=== PATIENT | female | born 1950 | race Caucasian/White ===

== ENCOUNTER → 2017-05-17 13:45 | Outpatient (CLI) | payer MEDICAID | END | disposition home or self-care (01) | LOC: D.CT 13:45 | DX: R55 Syncope and collapse (principal) ==

== ENCOUNTER → 2017-08-03 06:17 | Outpatient (CLI) | payer MEDICARE ==
--- NOTE | ~2017-08-03 | HEMODYNAMI ---
PATIENT:CHET TATE MEDICAL RECORD: [id number] : 54 LOCATION:[facility] ADMISSION DATE: 08/03/17 Generatedon:08/03/20179:15 Patient name: CHET TATE Patient #: [id number] SSN: : 1950 Date of study: 08/03/2017 Page: Of Hemodynamic Procedure Report Patient Data Patient Demographics Procedure consent was obtained First Name: CHET Gender: Female Last Name: BEBETO : 1950 [facility] Initial: ANDERSON Age: 67 year(s) Patient #: [id number] Race: Unknown Additional ID: [id number] Contact details [address]: [address] [place] [address] State: [place] City: [place] Zip code: [address] Admission Admission Data Admission Date: 08/03/2017 Admission Time: 6:17 Procedure Procedure Types Cath Procedure Diagnostic Procedure LHC LHC w/Coronaries Miscellaneous Procedures Moderate Sedation up to 15 minutes Procedure Description Procedure Date Procedure Date: 08/03/2017 Procedure Start Time: 8:52 Procedure End Time: 9:15 Procedure Staff Name Function Jin Almaguer MD Performing Physician Daria Coles RT Scrub Grady Issa RT Monitor Denys Marquez RN Nurse Procedure Data Cath Procedure Fluoroscopy Diagnostic fluoroscopy Total fluoroscopy Time: 1.3 time: 1.3 min min Diagnostic fluoroscopy Total fluoroscopy dose: 101 dose: 101 mGy mGy Contrast Material Contrast Material Type Amount (ml) Isovue 300 32 Entry Location Entry Primary Successful Side Size Upsize Upsize Entry Closure Boo ccessful Closure Location (Fr) 1 (Fr) 2 (Fr) Remarks Device Remarks Femoral Right 5 Fr Manual artery Compression Estimated blood loss: 10 ml Diagnostic catheters Device Type Used For End Catheter Placement Cordis 5Fr JL 4.0 Procedure Catheter (MP) Cordis 5Fr 3DRC Catheter Procedure (MP) Cordis 5Fr Pigtail Procedure Catheter (MP) Procedure Complications No complications Procedure Medications Medication Administration Route Dosage Oxygen NC 2 l/min Lidocaine 2% added to field 20 Heparin Flush Bag added to field 2 bags (1000units/500ml NS) 0.9% NaCl I.V. 100 ml/hr Versed I.V. 1 mg Fentanyl I.V. 50 mcg Hemodynamics Rest Heart Rate: 53 (bpm) Pressure Samples Time Site Value (mmHg) Purpose Heart Use Rate(bpm) 9:01 LV 106/-2,12 EDP 66 9:01 AO 93/55(72) Pullback 68 9:01 LV 95/7,8 Pullback 68 Gradients Valve Time Site 1 Site 2 Mean SEP/DFP Peak To Heart Use (mmHg) (sec/min) Peak Rate (mmHg) (bpm) Aortic 9:01 LV AO 3 16 2 68 95/7,8 93/55(72) Calculations Valve P-P Mean Valve Index Valve Source Name Gradient Area Flow (cm2) Aortic 2 3 2 3 Snapshots Pre Cath Intra NCS Post Cath Vital Signs Time Heart Resp SPO2 etCO2 NIBP Rhythm Pain Sedation Rate (ipm) (%) (mmHg) (mmHg) Status Level (bpm) 8:38:39 62 14 100 0 113/63(87) NSR 0 (11) 10(A) , No pain 8:43:09 71 16 100 0 119/75(92) NSR 0 (11) 10(A) , No pain 8:47:42 68 15 100 0 107/64(88) NSR 0 (11) 10(A) , No pain 8:52:12 68 16 99 0 95/61(73) NSR 0 (11) 10(A) , No pain 8:56:40 65 14 99 0 98/62(75) NSR 0 (11) 10(A) , No pain 9:01:09 66 15 98 0 97/60(75) NSR 0 (11) 10(A) , No pain 9:05:37 66 18 100 0 99/64(79) NSR 0 (11) 10(A) , No pain 9:10:05 62 14 100 0 98/60(79) NSR 0 (11) 10(A) , No pain 9:14:34 61 20 0 102/65(84) NSR 0 (11) 10(A) , No pain Medications Time Medication Route Dose Verified Delivered Reason Notes Effec tiveness by by 8:37:48 Oxygen NC 2 Jin Buffie used for l/min Tripp Marquez RN procedure MD 8:37:56 Lidocaine 2% added 20ml Jin Jin for local to vial Tripp Almaguer MD anesthetic field 8:38:03 Heparin Flush added 2 Jin Jin used for Bag to bags Tripp Almaguer MD procedure (1000units/500ml field NS) 8:38:13 0.9% NaCl I.V. 100 Jin Buffie Per ml/hr Tripp Marquez RN physician MD 8:48:24 Versed I.V. 1 mg Jin Buffie for Tripp Marquez RN sedation 8:48:31 Fentanyl I.V. 50 Jin Buffie for mcg Tripp Marquez RN sedation Procedure Log Time Note 8:00:20 Denys Marquez RN sent for patient. Start room use. 8:32:40 Patient received from Pre/Post Procedure Room to CCL 1 Alert and oriented. Tansferred to table in Supine position. 8:37:30 Time tracking: Regular hours 8:37:34 Plan of Care:Hemodynamics will remain stable., Cardiac rhythm will remain stable., Comfort level will be maintained., Respiratory function will remain adequate., Patient/ family verbilizes understanding of procedure., Procedure tolerated without complication., Recovers from procedure without complications.. 8:37:41 Warm blankets applied, and kvng hugger turned on for patient comfort. 8:37:41 Correct patient and procedure confirmed by team. 8:37:42 Signed procedure consent form obtained from patient. 8:37:43 ECG and BP/O2 sat monitors applied to patient. 8:37:48 Oxygen 2 l/min NC was administered by Denys Marquez RN; used for procedure; 8:37:52 Vital chart was started 8:37:53 Baseline sample Acquired. 8:37:56 Lidocaine 2% 20ml vial added to field was administered by Jin Almaguer MD; for local anesthetic; 8:37:56 Rhythm: sinus rhythm 8:37:58 Full Disclosure recording started 8:38:03 Heparin Flush Bag (1000units/500ml NS) 2 bags added to field was administered by Jin Almaguer MD; used for procedure; 8:38:13 0.9% NaCl 100 ml/hr I.V. was administered by Denys Marquez RN; Per physician; 8:38:27 H&P Date Dictated: 08/03/2017 New H&P dictated by physician.. 8:38:28 Pre-procedure instructions explained to patient. 8:38:28 Pre-op teaching completed and patient verbalized understanding. 8:38:35 Family in patients room. 8:38:36 Patient NPO since Midnight. 8:38:38 Is the patient allergic to Iodine/contrast media? No. 8:39:08 Is patient on blood thinner?Yes 8:39:11 ACC The patient was administered the following blood thiners within the last 24 hours: ACCPlavix 8:39:14 Patient diabetic? No. 8:39:17 Previous problem with sedation/anesthesia? No ? 8:39:19 Snore? Yes 8:39:21 Sleep apnea? No 8:39:22 Deviated septum? No 8:39:23 Opens mouth fully? Yes 8:39:24 Sticks out tongue? Yes 8:39:35 Airway obstruction? No ? 8:39:58 Dentures? Yes IN 8:40:01 Pre procedure: right dorsailis pedis pulse 1+ Palpable, but thready & weak; easily obliterated 8:40:03 Modified Maxime's test Ulnar > 7 seconds. 8:40:13 FAILED MAXIME'S 8:40:15 Patient pain scale 0/10 ?. 8:40:20 IV patent on arrival in left forearm with 0.9% NaCl at O. 8:40:23 Lab results completed and on chart. 8:40:34 Right groin area was prepped with chlora-prep and draped in sterile fashion 8:40:38 Alarms reviewed by R. N. 8:40:38 Sharps counted by scrub and verified by R.N. 8:40:39 Physician paged 8:42:32 Use device set Femoral Dx 8:42:33 Tegaderm 4 x 4 opened to sterile field. 8:42:34 Acist Hand Control opened to sterile field. 8:42:35 Acist Manifold opened to sterile field. 8:42:36 Acist Syringe opened to sterile field. 8:42:37 Bag Decanter opened to sterile field. 8:42:37 Medline Cath Pack opened to sterile field. 8:42:37 Terumo 5Fr Beaufort Sheath opened to sterile field. 8:42:38 St Amari 260cm J .035 wire opened to sterile field. 8:42:39 Diagnostic Infinity 5Fr Multipack catheter opened to sterile field. 8:43:00 Cook 4Fr Micropuncture ([id number]) opened to sterile field. 8:44:30 Physician arrived 8:44:46 --------ALL STOP TIME OUT------ 8:44:47 Final Timeout: patient, procedure, and site verified with staff and physician. All members of the team are in agreement. 8:44:50 Right groin site verified by team. 8:44:52 Physical assessment completed. ASA score P 2 - A patient with mild systemic disease as per Jin Almaguer MD. 8:44:56 Sedation plan: IV Moderate Sedation Versed, Fentanyl 8:48:24 Versed 1 mg I.V. was administered by Denys Marquez RN; for sedation; 8:48:31 Fentanyl 50 mcg I.V. was administered by Denys Marquez RN; for sedation; 8:52:38 Procedure started. 8:52:49 Local anesthetic to right femoral artery with Lidocaine 2% by Jin Almaguer MD.INITIAL ACCESS ONLY 8:54:43 Access obtained with 4Fr micropunture. 8:54:54 A 5 Fr sheath was inserted into the Right Femoral artery 8:55:29 A Cordis 5Fr JL 4.0 Catheter (MP) was advanced over the wire and used for Procedure. 8:56:18 LCA angiography performed. 8:57:17 Catheter exchanged over wire. 8:57:34 Zero performed for pressure channel P1 8:57:37 Zero performed for pressure channel P1 8:58:30 A Cordis 5Fr 3DRC Catheter (MP) was advanced over the wire and used for Procedure. 8:59:05 RCA angiography performed. 8:59:26 Catheter exchanged over wire. 9:00:08 A Cordis 5Fr Pigtail Catheter (MP) was advanced over the wire and used for Procedure. 9:01:23 LV angiography performed. 9:01:24 LV gram done using DALTON 9:02:14 EF : 50 % 9:02:41 LV hemodynamics recorded. 9:02:48 Injector settings: Ml/sec: 12, Volume: 8, 9:02:51 Catheter removed. 9:04:09 Procedure ended.(Physican Out) 9:04:32 Sheath removed intact; hemostasis achieved with Manual Compression to the Right Femoral artery. 9:04:33 Physician opted for manual compression due to the artery being very superficial. 9:04:49 Fluoroscopy time 01.30 minutes. 9:04:53 Fluoroscopy dose: 101 mGy 9:04:53 Flurop Dose total: 101 9:04:58 Contrast amount:Isovue 300 32ml. 9:05:00 Sharps counted by scrub and verified by R.N. 9:05:07 Post Procedure Pulses reassessed and unchanged 9:05:11 Post-procedure physical assessment completed. ASA score P 2 - A patient with mild systemic disease as per Jin Almaguer MD. 9:05:15 Post procedure rhythm: unchanged. 9:05:18 Estimated blood loss: 10 ml 9:05:20 Post procedure instruction explained to patient.Patient verbalizes understanding. 9:05:21 Patient needs reinforcement of post procedure teaching. 9:05:28 Procedure type changed to Cath procedure, Diagnostic procedure, LHC, LHC w/Coronaries, Miscellaneous Procedures, Moderate Sedation up to 15 minutes 9:06:55 Procedure and supply charges have been captured, reviewed, submitted and are correct. 9:06:58 Procedure Complication : No complications 9:14:55 Vital chart was stopped 9:14:56 See physician's report for complete and final results. 9:14:57 Report given to Pre/Post Procedure Room. 9:14:59 Patient transfered to Pre/Post Procedure Room with Stretcher. 9:15:02 Procedure ended. 9:15:02 Full Disclosure recording stopped 9:15:05 End room use (Document Last) Device Usage Item Name Manufacture Quantity Catalog Hospital Part Current Minimal Lot# / Number Charge Number Stock Stock Serial# Code Tegaderm 4 x 3M 1 [id number] 128776 310857 5 4 Acist Hand Acist 1 06003 196324 833102 545118 5 Control [employer] Inc Acist Acist 1 85791 432008 382425 490555 5 Manifold Medical Systems Inc Acist Syringe Acist 1 91369 708663 091122 320568 20 Medical Systems Inc Bag Decanter Microtek 1 2002S [id number] 12077 110263 5 Medical Inc. Medline Cath Cardinal 1 [id number] 051672 23703 057172 5 Pack Health Terumo 5Fr Terumo 1 BEL227 103729 968233 080316 [address] Amari 260[address] St Amari 1 [id number] 199207 097858 793717 30 J .035 wire Diagnostic Cardinal 1 [id number] 058044 65153 716735 30 Infinity 5Fr Health Multipack catheter Cook 4Fr Cook [facility] 1 [id number] 094231 041080 318479 5 Micropuncture ([id number]) Cordis 5Fr JL Cardinal 1 [id number] 5 4.0 Catheter Health () Cordis 5Fr Cardinal 1 [id number] 5 3DRC Catheter Health () Cordis 5Fr Cardinal 1 [id number] 5 Pigtail Health Catheter () Signature Audit Rector Stage Time Signature Unsigned Intra-Procedure 08/03/2017 Grady Issa 9:15:17 AM RT(R) Signatures Monitor : Grady Issa RT Signature : Date : Time : [address] [address]
[~2017-08-03 06:17] MED LIST: COREG 3.1253.125 MG PO
[2017-08-03 06:52] VITALS: BP 124/76; BMI 16.5
[2017-08-03 06:56] LABS: BASOPHILS 1.2 % (0-2); EOSINOPHILS 12.5 % (0-7); HEMATOCRIT 44.7 % (36.0-48.0); LYMPHOCYTES 34.4 % (15-50); MCH 32.5 pg (26.0-34.0); MCHC 33.6 g/dL (31.0-37.0); MEAN PLATELET VOLUME 10.1 fL (7.4-10.4); MONOCYTES 4.8 % (2-11); NEUTROPHILS 47.1 % (40-80); PLATELET COUNT 221 10x3/uL (130-400); RBC 4.61 10x6/uL (4.00-5.40); WBC 4.2 10x3/uL (4.8-10.8)
[2017-08-03 07:17] LABS: CALC OSMOLALITY 269 mosm/kg (275-300); CALCIUM 9.1 mg/dL (8.5-10.1); CARBON DIOXIDE 31.8 mmol/L (21.0-32.0); CHLORIDE - SERUM 100 mmol/L (98-107); CREATININE - SERUM 0.4 mg/dL (0.6-1.3); GLUCOSE 88 mg/dL (74-106); POTASSIUM - SERUM 3.9 mmol/L (3.5-5.1); SODIUM 137 mmol/L (136-145); UREA NITROGEN 5 mg/dL (7-18); eGFR NON AFRICAN AMERICAN > 90 mL/min (90-120)
--- NOTE | 2017-08-03 09:32 | NUR ---
RECIEVED TO ROOM VIA STRETCHER WITH DRESSING TO R/GROIN CDI NO BLEEDING NO HEMATOMA NOTED. VSS WITH CHEST PAIN DENIED INSTRUCTED PATIENT TO KEEP HEAD FLAT ON PILLOW WITH RLE STRAIGHT
--- NOTE | 2017-08-03 09:44 | NUR ---
R/GROIN REMAINS CDI NO BLEEDING NO HEMATOMA NOTED. VSS WITH PAIN DENIED FAMILY AT SIDE
--- NOTE | 2017-08-03 10:35 | NUR ---
VSS WITH CHEST PAIN DENIED. R/GROIN CDI NO BLEEDING NO HEMATOMA NOTED. WILL MONITOR
--- NOTE | 2017-08-03 10:54 | NUR ---
PATIENT CONTINUES TO SLEEP WITH NO DISTRESS NOTED FAMILY IS AT BEDSIDE. VSS WITH R/GROIN CDI
--- NOTE | 2017-08-03 11:21 | NUR ---
REPOSITIONED TO SITTING WITH HOB UP 30 DEGREES PIV REMOVED WITH DRESSING APPLIED. R/GROIN REMAINS CDI WITH CHEST PAIN DENIED. PATIENT UP TO GET DRESSED FOR DISCHARGE HOME
--- NOTE | 2017-08-03 12:00 | NUR ---
PATIENT UP AND DRESSED FOR DISCHARGE WITH PAIN DENIED R/GROIN REMAINS STABLE NO DISTRESS NOTED. VERBAL AND WRITTEN DISCHARGE GONE OVER WITH PATIENT LEFT VIA WC TO PARKING FOR TRANSPORT HOME
== END | disposition home or self-care (01) ==
LOC: D.CATH 06:17
PROVIDERS: Internal Medicine Cardiovascular Disease
DX: I25.10 Atherosclerotic heart disease of native coronary artery without angina pectoris (principal); I47.1 Supraventricular tachycardia; I42.8 Other cardiomyopathies; R94.39 Abnormal result of other cardiovascular function study; Z87.891 Personal history of nicotine dependence; Z79.899 Other long term (current) drug therapy; Z01.812 Encounter for preprocedural laboratory examination

== ENCOUNTER → 2018-01-08 07:42 | Outpatient (CLI) | payer MEDICARE ==
[2017-08-03 06:52] VITALS: BMI 16.5
== END ==
LOC: D.MAMMO 11-22 15:45
DX: Z12.31 Encounter for screening mammogram for malignant neoplasm of breast (principal)

== ENCOUNTER → 2018-02-27 12:43 | Outpatient (CLI) | payer MEDICARE ==
[2017-08-03 06:52] VITALS: BMI 16.5
--- NOTE | ~2018-02-27 | EC ---
PATIENT:CHET TATE DATE OF SERVICE: 02/27/18 SEX: F MEDICAL RECORD: [id number] DATE OF : 54 LOCATION:D[facility] AGE OF PATIENT: 67 ADMISSION DATE: 02/27/18 REFERRING PHYSICIAN: INTERPRETING PHYSICIAN: HAMMAD TIRADO MD ECHOCARDIOGRAM REPORT ECHO CHARGES 4 ECHO COMPLETE Date: 02/27 CLINICAL DIAGNOSIS: HX OF DIZZNINESS/ABLASION FOR SVT ECHOCARDIOGRAPHIC MEASUREMENTS (adult normal given) AC root (d.<3.7cm) 2.6 cm LV Septum d (<1.2 cm> 1.3 cm Valve Excursion 1.7 cm LV Septum (systole) 1.4 cm Left Atria (s.<4.0cm> 3.5 cm LVPW d(<1.2cm) 1.2 cm RV (d.<2.3cm) 4.6 cm LVPW (sytole) 1.5 cm LV diastole(<5.6CM) 4.9 cm MV E-F(>70mm/sec) cm LV systole 3.8 cm LVOT Diameter 2.0 cm MV exc.(>10mm) 1.5 cm Est.ejection fraction (50-75%) % DOPPLER: LVIT cm/sec A 70.0 cm/sec E 58.0 cm/sec LA cm/sec RVSP 33 mmHg LVOT 81 cm/sec AOP1/2T m/s Asc. Ao 123 cm/sec RVOT 78 cm/sec RA cm/sec PA 117 cm/sec AV Gradient Peak 6.07 mmHg AV Mean 3.30 mmHg AV Area 1.8 cm MV Gradient Peak 2.64 mmHg MV Mean 1.16 mmHg MV Area cm COMMENTS: Material Spreader: 2 [employer] Supervisor: 4 Dr. Tirado TAPE# PACS Pericardial Effusion N DATE OF SERVICE: PROCEDURE: Transthoracic echocardiogram. FINDINGS: 1. Left ventricle has mild left ventricular hypertrophy. Inflow characteristics consistent with diastolic dysfunction. 2. The left atrium is normal size, normal function. 3. The mitral valve is structurally normal with trace to mild mitral regurgitation. ECHOCARDIOGRAM REPORT [id number] CHET TATE 4. The aortic valve is normal. 5. The tricuspid valve is normal structurally with mild tricuspid regurgitation. The RVSP is 33 mmHg. 6. The right ventricle is moderately dilated. 7. The right atrium is mildly dilated. 8. The pulmonic valve is normal. CONCLUSIONS: The patient has evidence of mild hypertensive heart disease, otherwise normal echocardiogram for age. TRANSINT:[id number] Voice Confirmation ID: [id number] DOCUMENT ID: [id number] HAMMAD TIRADO MD at 0819 CC: [id number] DICTATION DATE: 02/28/18925 EARLY CHILDHOOD COORDINATOR: 02/28/18 1220 DEP CLI 02/27/18 [address] [place] [address]
== END | disposition home or self-care (01) ==
LOC: D.ECHO 09:00 → D.OPS 11:30 → D.ECHO 12:43
DX: R42 Dizziness and giddiness (principal)

== ENCOUNTER 2020-05-15 14:18 | Inpatient (IN) | payer MEDICARE ==
[~2020-05-15] VITALS: Ht 167.6 cm; Wt 47.6 kg
[2020-05-15] MEDS ORDERED: OXYBUTYNIN CHLOR5 MG PO (14:42)
--- NOTE | 2020-05-15 14:52 | NUR ---
REC'D TO ROOM 2207 AT THIS TIME ALERT AND ORIENTED. RESP EVEN AND UNLABORED WITH NO DISTRESS NOTED. CAN EXPRESS NEEDS AND WANTS. NO C/O NOTED OR VOICED. STAND BY ASSISTANCE GIVEN TO BSC. ASSESSMENT COMPLETED. C/L IN REACH AT BEDSIDE.
[2020-05-15] MEDS ORDERED: ALENDRONATE SOD35 MG PO (14:56)
[2020-05-15] MEDS ORDERED: OS-CAL500 MG PO (14:57)
[2020-05-15] MEDS ORDERED: VITAMIN D5000 UNI1 PO (14:58)
[2020-05-15 15:03] VITALS: BP 131/78; BMI 16.9
--- NOTE | 2020-05-15 15:10 | NUR ---
ASSESSMENT COMPLETED PER ADMIT FLOW SHEET. PATIENT IS WITHOUT DISTRESS.PATIENT STATES HER RIGHT HIP HURTS AFTER LOOSING BALANCE AND FALLING ON April.FALL PREVENTION INITIATED WITH DEYSI MAT. FAMILY AT BEDSIDE.CALL LIGHT IN REACH.
[2020-05-15 15:29] LABS: APTT 27.9 SECONDS (22.8-39.4); INR 1.07 (0.85-1.17); PROTIME 13.9 SECONDS (11.6-15.0)
[2020-05-15 15:31] LABS: BASOPHILS 0.8 % (0-2); EOSINOPHILS 2.3 % (0-7); HEMATOCRIT 41.8 % (36.0-48.0); HEMOGLOBIN 13.7 g/dL (12-16); LYMPHOCYTES 30.1 % (15-50); MCH 31.1 pg (26.0-34.0); MCHC 32.8 g/dL (31.0-37.0); MCV 94.8 fL (80.0-100.0); MEAN PLATELET VOLUME 9.2 fL (7.4-10.4); MONOCYTES 10.1 % (2-11); NEUTROPHILS 56.7 % (40-80); PLATELET COUNT 304 10x3/uL (130-400); RBC 4.41 10x6/uL (4.00-5.40); RDW 13.7 % (11.5-14.5)
[2020-05-15 15:35] LABS: ALBUMIN 3.8 g/dL (3.4-5.0); ALKALINE PHOSPHATASE 134 U/L (30-120); ALT (SGPT) 16 U/L (10-68); BILIRUBIN - TOTAL 0.54 mg/dL (0.2-1.3); CALC OSMOLALITY 262 mosm/kg (275-300); CALCIUM 9.2 mg/dL (8.5-10.1); CARBON DIOXIDE 28.9 mmol/L (21.0-32.0); CHLORIDE - SERUM 97 mmol/L (98-107); CREATININE - SERUM 0.4 mg/dL (0.6-1.3); GLUCOSE 101 mg/dL (74-106); POTASSIUM - SERUM 3.5 mmol/L (3.5-5.1); PROTEIN - SERUM 7.1 g/dL (6.4-8.2); SODIUM 133 mmol/L (136-145); UREA NITROGEN 4 mg/dL (7-18); eGFR NON AFRICAN AMERICAN > 90 mL/min (90-120)
--- NOTE | 2020-05-15 17:04 | NUR ---
CALLED AND SPOKE TO DR BOYD IN REGARDS TO CONSULT, RECEIVED MRI RESULTS FROM WALK IN CLINIC, WENT OVER RESULTS WITH DR BOYD AND PT H&P, AFTER REVIEWING RESULTS, DR BOYD ASKED ME TO GO AND SPEAK TO PT IN REGARDS TO POSSIBLE SPINAL TAP DONE WITH DR MOCK, PER PT SHE DOES REMEMBER HAVING A SPINAL TAP AND THAT SHE WILL NEVER HAVE ONE AGAIN. WENT OVER RESULTS SHE RECEIVED FROM DR MOCK AT THE TIME, RELAYED RESULTS TO DR BOYD. PLACED ORDER FOR XRAY OF HIP FOR DR BETHEA. NO OTHER NEEDS AT THIS TIME. CONTINUE WITH PLAN OF CARE
[2020-05-15 20:00] VITALS: BP 139/75
[2020-05-15 22:38] LABS: BILIRUBIN NEGATIVE (NEGATIVE); GLUCOSE NEGATIVE (NEGATIVE); KETONE NEGATIVE (NEGATIVE); NITRITE NEGATIVE (NEGATIVE); UROBILINOGEN NORMAL (NORMAL)
[2020-05-16] VITALS (9 sets, daily range): BP systolic 102–120; BP diastolic 55–78
--- NOTE | 2020-05-16 00:50 | NUR ---
A&O X 4. UP WITH STANDBY Assist TO BSC. CONSENTS SIGNED AND ON CHART. EKG PERFORMED. CHG BATH COMPLETED. NO NEEDS VOICED AT THIS TIME, CTM.
--- NOTE | 2020-05-16 03:44 | NUR ---
I have reviewed this patient and I concur with the Shift Assessment completed by the Licensed Practical Nurse today this shift.
[2020-05-16 06:19] LABS: BASOPHILS 0.5 % (0-2); EOSINOPHILS 4.3 % (0-7); HEMATOCRIT 40.9 % (36.0-48.0); HEMOGLOBIN 13.5 g/dL (12-16); IMMATURE GRANULOCYTES 0.2 % (0-5); LYMPHOCYTES 26.6 % (15-50); MCH 31.3 pg (26.0-34.0); MCV 94.7 fL (80.0-100.0); MONOCYTES 11.3 % (2-11); NEUTROPHILS 57.1 % (40-80); PLATELET COUNT 269 10x3/uL (130-400); RBC 4.32 10x6/uL (4.00-5.40); RDW 13.8 % (11.5-14.5); WBC 4.4 10x3/uL (4.8-10.8)
[2020-05-16 06:40] LABS: ALBUMIN 3.4 g/dL (3.4-5.0); ALKALINE PHOSPHATASE 122 U/L (30-120); BILIRUBIN - TOTAL 0.52 mg/dL (0.2-1.3); CALCIUM 8.5 mg/dL (8.5-10.1); CHLORIDE - SERUM 106 mmol/L (98-107); CREATININE - SERUM 0.4 mg/dL (0.6-1.3); GLUCOSE 78 mg/dL (74-106); PROTEIN - SERUM 6.1 g/dL (6.4-8.2); SODIUM 141 mmol/L (136-145); eGFR NON AFRICAN AMERICAN > 90 mL/min (90-120)
[2020-05-16 06:42] LABS: ALT (SGPT) 22 U/L (10-68); CALC OSMOLALITY 275 mosm/kg (275-300); POTASSIUM - SERUM 4.1 mmol/L (3.5-5.1); UREA NITROGEN 2 mg/dL (7-18)
--- NOTE | 2020-05-16 08:15 | NUR ---
PATIENT PREMEDICATED FOR SURGERY WITH SURGERY STAFF HERE. PATIENT STABLE AT TIME OF DEPARTURE WITH STAFF. IV INFUSING TO LEFT FOREARM AT PRESCRIBED RATE.
--- NOTE | 2020-05-16 09:38 | NUR ---
PT CLEANSED FROM HIP TO TOE CIRCUMFERENTIALLY WITH ALCOHOL AND HIBECLENS PRIOR TO CHLORAPREP RN IN STERILE ATTIRE TO PREP CHLORAPREP X2
--- NOTE | 2020-05-16 19:15 | NUR ---
ALERT AND ORIENTED WHEN ENTERING THE ROOM. ASSESSMENT PERFORMED AND COMPELTED. SEE DOCUMENTATION. ASSISTED PATIENT TO BSC. RETURNED TO BED SAFELY. EXCELLENCE COACH DILAUDID FOR PAIN CONTROL. PATIENT DEMONSTRATES HOW TO USE CORRECTLY. DENIES FURTHER NEEDS AT THIS TIME. CALL LIGHT REMAINS CLOSE TO PATIENT. CPOC.
[2020-05-17] VITALS (8 sets, daily range): BP systolic 89–122; BP diastolic 52–71
--- NOTE | 2020-05-17 01:40 | NUR ---
RESTING WITH NO SIGNS OR SYMPTOMS OF DISTRESS AT THIS TIME. CALL LIGHT REMAINS CLOSE. PRECAUTIONS IN PLACE. SCD'S ON BILATERALLY. PEDAL PULSES PALPABLE BILATERALLY. CPOC.
[2020-05-17 06:00] LABS: BASOPHILS 0.2 % (0-2); EOSINOPHILS 0 % (0-7); HEMATOCRIT 36.1 % (36.0-48.0); HEMOGLOBIN 11.8 g/dL (12-16); IMMATURE GRANULOCYTES 0.2 % (0-5); LYMPHOCYTES 19.9 % (15-50); MCH 31.1 pg (26.0-34.0); MCHC 32.7 g/dL (31.0-37.0); MCV 95.3 fL (80.0-100.0); MEAN PLATELET VOLUME 9.1 fL (7.4-10.4); MONOCYTES 15.1 % (2-11); NEUTROPHILS 64.6 % (40-80); PLATELET COUNT 250 10x3/uL (130-400); RBC 3.79 10x6/uL (4.00-5.40); RDW 13.9 % (11.5-14.5)
[2020-05-17 06:38] LABS: ALBUMIN 2.7 g/dL (3.4-5.0); ALKALINE PHOSPHATASE 94 U/L (30-120); ALT (SGPT) 20 U/L (10-68); BILIRUBIN - TOTAL 0.58 mg/dL (0.2-1.3); CALCIUM 7.7 mg/dL (8.5-10.1); CHLORIDE - SERUM 100 mmol/L (98-107); CREATININE - SERUM 0.4 mg/dL (0.6-1.3); POTASSIUM - SERUM 3.8 mmol/L (3.5-5.1); PROTEIN - SERUM 5.6 g/dL (6.4-8.2); SODIUM 134 mmol/L (136-145); UREA NITROGEN 2 mg/dL (7-18); eGFR NON AFRICAN AMERICAN > 90 mL/min (90-120)
[2020-05-17 06:39] LABS: CALC OSMOLALITY 266 mosm/kg (275-300); GLUCOSE 156 mg/dL (74-106)
--- NOTE | 2020-05-17 19:25 | NUR ---
ALERT AND ORIENTED. PATIENT WEARING SCDS PER ORDER. PATIENT HAS TRAPESZE OVERHEAD. PROVIDED EDUCATION ON USE AND BODY MECHANICS. PATIENT STATES SHE IS VERY TIRED THIS EVENING FROM SITTING UP IN THE CHAIR AND WORKING WITH THERAPY. ASSISTED PATIENT TO BEDSIDE COMMODE. DENIES FURTHER NEEDS AT THIS TIME. PATENT IV TO THE LEFT FOREARM. ASSESSMENT COMPELTED. PEDAL PULSES PALPABLE. CALL LIGHT CLOSE. BED ALARM ON. CPOC.
[2020-05-18] VITALS: BP 111/63
[2020-05-18 04:00] VITALS: BP 111/62
[2020-05-18 05:41] LABS: BASOPHILS 0.2 % (0-2); EOSINOPHILS 0.8 % (0-7); HEMATOCRIT 34.4 % (36.0-48.0); HEMOGLOBIN 11.2 g/dL (12-16); IMMATURE GRANULOCYTES 0.2 % (0-5); LYMPHOCYTES 17.9 % (15-50); MCH 30.9 pg (26.0-34.0); MCHC 32.6 g/dL (31.0-37.0); MEAN PLATELET VOLUME 9.2 fL (7.4-10.4); MONOCYTES 15.2 % (2-11); NEUTROPHILS 65.7 % (40-80); PLATELET COUNT 235 10x3/uL (130-400); RBC 3.62 10x6/uL (4.00-5.40); RDW 13.7 % (11.5-14.5)
[2020-05-18 05:54] LABS: WBC 6.4 10x3/uL (4.8-10.8)
[2020-05-18 06:05] LABS: ALBUMIN 2.4 g/dL (3.4-5.0); ALKALINE PHOSPHATASE 104 U/L (30-120); BILIRUBIN - TOTAL 0.83 mg/dL (0.2-1.3); CALCIUM 7.8 mg/dL (8.5-10.1); CARBON DIOXIDE 29.7 mmol/L (21.0-32.0); CHLORIDE - SERUM 100 mmol/L (98-107); CREATININE - SERUM 0.3 mg/dL (0.6-1.3); GLUCOSE 125 mg/dL (74-106); PROTEIN - SERUM 5.5 g/dL (6.4-8.2); SODIUM 132 mmol/L (136-145); eGFR NON AFRICAN AMERICAN > 90 mL/min (90-120)
[2020-05-18 06:06] LABS: ALT (SGPT) 50 U/L (10-68); CALC OSMOLALITY 262 mosm/kg (275-300); UREA NITROGEN 3 mg/dL (7-18)
[2020-05-18 08:00] VITALS: BP 121/60
--- NOTE | 2020-05-18 09:00 | NUR ---
PT GIVEN FRESH WATER AND ICE. CO OF PAIN OF A 3 OUT OF 10 ON THE PAIN SCALE. PLUGGED IN HER TABLET FOR HER. INCENTIVE SPIROMETER DEMONSTRATED. CO OF BEING COLD ADJUSTED THERMOSTAT TO HER HOME SETTING OF 80 DEGREES. CL IN REACH. NO FURTHER NEEDS AT THIS TIME.
--- NOTE | 2020-05-18 10:17 | NUR ---
Rehab Prescreening Consult recieved and the chart has been reviewed. She is [facility] managed Medicare and will require a preauth for the acute rehab. She has a PT eval and a pending OT eval that was ordered on 05/15/20. She will need the OT eval before information can be submitted to the insurance for review. Elaine Hanson RN Clininical liaison, Rehab
[2020-05-18 11:00] VITALS: BP 118/64
--- NOTE | 2020-05-18 12:09 | NUR ---
HELPED PT RECLINE IN THE CHAIR. CL IN REACH. OSORIO
[2020-05-18 13:51] VITALS: Ht 167.6 cm; Wt 47.6 kg
--- NOTE | 2020-05-18 14:42 | NUR ---
Rehab Note- PreAuth has been initiated and clinicals have been faxed to [facility] for review. Will continue to await determination. Thank you for this referral! Erika Vazquez RN Clinical Liaison, [facility] Rehab
[2020-05-18 16:40] VITALS: BP 111/57
[2020-05-18 20:00] VITALS: BP 124/67
[2020-05-19] VITALS: BP 116/74
--- NOTE | 2020-05-19 03:46 | NUR ---
REC'D WALKING ROUNDS CHGE OF SHIFT.IN BED ASSISTED WITH BEDPAN VOIDED LGE AMT. DRSG DRY AND INTACT TO RIGHT HIP.WITH MINIMAL SWELLING TO RIGHT THIGH.FOOT PINK AND WARM PEDAL PULSE PRESENT.WIGGLES TOES AND DORSIFLEXES WITHOUT CALF PAIN OR TENDERNESS.WILL CONTINUE TO MONITOR FOR ANY CHGES IN NEUROVASCULAR STATUS AND FOLLOW CURRENT PLAN OF CARE.
[2020-05-19 04:00] VITALS: BP 120/72
--- NOTE | 2020-05-19 05:25 | NUR ---
I have reviewed this patient and I concur with the Shift Assessment completed by the Licensed Practical Nurse today this shift.
[2020-05-19 06:50] LABS: BASOPHILS 0.2 % (0-2); EOSINOPHILS 2.6 % (0-7); HEMOGLOBIN 11.3 g/dL (12-16); IMMATURE GRANULOCYTES 0.2 % (0-5); LYMPHOCYTES 18.4 % (15-50); MCHC 33.2 g/dL (31.0-37.0); MCV 93.4 fL (80.0-100.0); MEAN PLATELET VOLUME 9.2 fL (7.4-10.4); MONOCYTES 11.1 % (2-11); NEUTROPHILS 67.5 % (40-80); PLATELET COUNT 240 10x3/uL (130-400); RBC 3.64 10x6/uL (4.00-5.40); RDW 13.4 % (11.5-14.5); WBC 5.8 10x3/uL (4.8-10.8)
[2020-05-19 07:07] LABS: ALBUMIN 2.5 g/dL (3.4-5.0); ALKALINE PHOSPHATASE 126 U/L (30-120); BILIRUBIN - TOTAL 0.87 mg/dL (0.2-1.3); CALC OSMOLALITY 260 mosm/kg (275-300); CALCIUM 8.4 mg/dL (8.5-10.1); CHLORIDE - SERUM 98 mmol/L (98-107); CREATININE - SERUM 0.3 mg/dL (0.6-1.3); GLUCOSE 124 mg/dL (74-106); POTASSIUM - SERUM 3.9 mmol/L (3.5-5.1); PROTEIN - SERUM 5.9 g/dL (6.4-8.2); SODIUM 131 mmol/L (136-145); UREA NITROGEN 3 mg/dL (7-18); eGFR NON AFRICAN AMERICAN > 90 mL/min (90-120)
[2020-05-19 07:08] LABS: ALT (SGPT) 76 U/L (10-68)
[2020-05-19 09:15] VITALS: BP 108/64
[2020-05-19 13:03] VITALS: BP 103/61
--- NOTE | 2020-05-19 15:33 | NUR ---
OT NOTE: PT COMPLETED FACE/HAND HYGIENE WITH SETUP. PT COMPLETED SITTING BALANCE WITH SBA. PT COMPLETED BUE AROM EXS TOLERATED. PT EXHIBITED GOOD ACTIVITY TOLERANCE. [phone] THANK YOU,KRISTIAN BAUTISTA
[2020-05-19 16:55] VITALS: BP 126/75
[2020-05-19 19:25] VITALS: BP 109/54
--- NOTE | 2020-05-20 01:39 | NUR ---
I have reviewed this patient and I concur with the Shift Assessment completed by the Licensed Practical Nurse today this shift.
[2020-05-20 05:00] LABS: BASOPHILS 0.6 % (0-2); EOSINOPHILS 5.2 % (0-7); HEMOGLOBIN 10.6 g/dL (12-16); IMMATURE GRANULOCYTES 0.2 % (0-5); LYMPHOCYTES 30.7 % (15-50); MCHC 33.1 g/dL (31.0-37.0); MCV 93.6 fL (80.0-100.0); MONOCYTES 12.7 % (2-11); NEUTROPHILS 50.6 % (40-80); PLATELET COUNT 253 10x3/uL (130-400); RBC 3.42 10x6/uL (4.00-5.40); RDW 13.4 % (11.5-14.5); WBC 4.7 10x3/uL (4.8-10.8)
[2020-05-20 05:26] LABS: ALBUMIN 2.3 g/dL (3.4-5.0); ALKALINE PHOSPHATASE 114 U/L (30-120); ALT (SGPT) 61 U/L (10-68); BILIRUBIN - TOTAL 0.86 mg/dL (0.2-1.3); CALCIUM 8.1 mg/dL (8.5-10.1); CARBON DIOXIDE 27.1 mmol/L (21.0-32.0); CHLORIDE - SERUM 100 mmol/L (98-107); GLUCOSE 94 mg/dL (74-106); POTASSIUM - SERUM 4.3 mmol/L (3.5-5.1); PROTEIN - SERUM 5.8 g/dL (6.4-8.2); SODIUM 132 mmol/L (136-145)
[2020-05-20 05:28] LABS: CALC OSMOLALITY 261 mosm/kg (275-300); CREATININE - SERUM 0.4 mg/dL (0.6-1.3); UREA NITROGEN 5 mg/dL (7-18); eGFR NON AFRICAN AMERICAN > 90 mL/min (90-120)
[2020-05-20 08:45] VITALS: BP 111/68
--- NOTE | 2020-05-20 11:38 | NUR ---
Rehab Note- Reveived VM from Leila with [facility] on 05/19 @ 1725 with Auth approval, Auth #[id number]. Will notify ROXY Ramirez of approval and notify of no bed avaliable at this time due to nursing cap. Will continue to follow at this time and accept when bed avaliable. Thank you for this referral! Erika Vazquez RN Clinical Liaison, [facility] Rehab
[2020-05-20 13:06] VITALS: BP 108/71
--- NOTE | 2020-05-20 13:12 | NUR ---
Nutrition follow-up: Visited with pt during breakfast. Pt reports no appetite; reports she has always been small; states she has lost some weight but not sure how much. Diet: Regular vegetarian PO intake ~30% average of last 9 meals; pt reports food justs does not taste good to her. Phenotypic criteria 1. BMI: 16.9 2. Observed reduced muscle, fat mass of all extremeties; observed temporal, clavicle, scapula wasting. Etiologic crieria 1. < 50% intake of estimated energy needs for > 1 week Based on above GLIM criteria pt is now assessed with severe malnutrition. Will continue to provide food choices and honor all food preferences. RDN ordered vanilla Ensure with meals. Following.
--- NOTE | 2020-05-20 14:20 | NUR ---
OT NOTE: PT PERFORMED WELL TODAY. SIT TO STAND FROM CHAIR WITH MIN ASSIST AND USE OF WALKER; AMBULATED TO SINK TO PERFORM SINK HYGINE; AMBULATED TO TOILET AND PERFORMED TRANSFER WITH CGA; ABLE TO DOFF BRIEF INDEP, BUT REQUIRED MIN ASSIST TO SHAWANDA CLEAN BRIEF.. INDEP WITH TOILET HYGIENE; SBA FOR CLOTHING MGMT; PRACTICED WT SHIFTING WITH USE OF WALKER; DEMONSTRATED EXS TO BE PERFORMED WHILE SITTING UP IN CHAIR. EDUCATED ABOUT REHAB. KATHIE SMITH, OTR/L [phone]
[2020-05-20] MEDS ORDERED: ELIQUIS2.5 MG PO (15:47)
[2020-05-20] MEDS ORDERED: HYDROCODON-ACE1 EA10 PO (15:48)
--- NOTE | 2020-05-20 16:12 | NUR ---
Rehab Note- should have bed avaliable this evening. Spoke with ROXY Portillo and also ROXY Ruiz to notify and to receive discharge order if physicians feel ready for discharge from the acute hospital. Thank you for this referral! Erika Vazquez RN Clinical Liaison, [facility] Rehab
[2020-05-20 16:33] VITALS: BP 109/73
--- NOTE | 2020-05-20 17:16 | NUR ---
ATTEMPTED TO CALL REPORT TO REHAB. UNSUCCESSFUL CAUSE ROOM STILL DIRTY. REPORTED STAT CLEAN IS ON ROOM AND WILL CALL FLOOR FOR REPORT WHEN ROOM IS CLEAN.
--- NOTE | 2020-05-20 18:44 | NUR ---
REPORT CALLED TO [place] ON REHAB. TRANSFERED TO [facility] VIA WHEEELCHAIR PER PEDIATRIC CLINICAL DIETICIAN
== END 2020-05-20 19:00 | DRG 469 ==
LOC: D.MS 14:18
PROVIDERS: Emergency Medicine; Orthopaedic Surgery; ADMIT Family Medicine; ATTEND Family Medicine
PROC: 0SRR0JZ Replacement of Right Hip Joint, Femoral Surface with Synthetic Substitute, Open Approach (ICD-10-PCS; principal; 2020-05-16 08:00)
DX: S72.001A Fracture of unspecified part of neck of right femur, initial encounter for closed fracture (principal); E43 Unspecified severe protein-calorie malnutrition; G72.81 Critical illness myopathy; Z68.1 Body mass index [BMI] 19.9 or less, adult; G35 Multiple sclerosis; W19.XXXA Unspecified fall, initial encounter; H49.9 Unspecified paralytic strabismus

== ENCOUNTER 2020-05-20 18:50 | Inpatient (IN) | payer MEDICARE ==
[~2020-05-20] VITALS: Ht 167.6 cm; Wt 47.6 kg
[~2020-05-20 18:50] MED LIST changes: +ALENDRONATE SOD35 MG PO; +ELIQUIS2.5 MG PO; +HYDROCODON-ACE1 EA10 PO; +OS-CAL500 MG PO; +OXYBUTYNIN CHLOR5 MG PO; +VITAMIN D5000 UNI1 PO
[2020-05-20 20:07] VITALS: BP 124/56
--- NOTE | 2020-05-20 20:20 | NUR ---
AWAKE AND ALERT. ADMITTED FOR PHYSICAL REHAB AND SERVICES OF DR OLMOS. ORIENTED X 4. MINIMUM ASSIST FOR TRANSFERS. DRESSING TO RIGHT HIP DRY AND INTACT. RESPRIAITONS UNLABORED. ORIENTED TO ROOM AND CALL LIGHT USE. SEE ADMISSION ASSESSMENT.
[2020-05-20 21:38] VITALS: BP 124/56; BMI 16.9
--- NOTE | 2020-05-21 02:27 | NUR ---
SLEEPING WITH RESPIRATIONS UNLABORED. NO DISTRESS NOTED. CALL LIGHT IN REACH.
--- NOTE | 2020-05-21 05:17 | NUR ---
QUIET HOURS. RESTING IN BED WITH RESPIRAITONS UNLABORED. NO ACUTE CHANGES IN CONDITION THIS SHIFT.
[2020-05-21 06:48] LABS: CALC OSMOLALITY 264 mosm/kg (275-300); CALCIUM 8.8 mg/dL (8.5-10.1); CARBON DIOXIDE 30.3 mmol/L (21.0-32.0); CHLORIDE - SERUM 99 mmol/L (98-107); CREATININE - SERUM 0.4 mg/dL (0.6-1.3); GLUCOSE 106 mg/dL (74-106); SODIUM 134 mmol/L (136-145); UREA NITROGEN 5 mg/dL (7-18); eGFR NON AFRICAN AMERICAN > 90 mL/min (90-120)
[2020-05-21 07:05] LABS: BASOPHILS 0.5 % (0-2); EOSINOPHILS 5.3 % (0-7); HEMATOCRIT 32.8 % (36.0-48.0); HEMOGLOBIN 10.9 g/dL (12-16); IMMATURE GRANULOCYTES 0.3 % (0-5); LYMPHOCYTES 26.2 % (15-50); MCH 31.1 pg (26.0-34.0); MCHC 33.2 g/dL (31.0-37.0); MCV 93.7 fL (80.0-100.0); NEUTROPHILS 53.7 % (40-80); PLATELET COUNT 297 10x3/uL (130-400); RDW 13.5 % (11.5-14.5); WBC 3.9 10x3/uL (4.8-10.8)
[2020-05-21 08:00] VITALS: BP 110/59
--- NOTE | 2020-05-21 08:27 | NUR ---
PT RESTING IN BED WITH EYES OPEN CALL LIGHT IN REACH WILL MONITER
--- NOTE | 2020-05-21 12:00 | NUR ---
I have reviewed this patient and I concur with the Shift Assessment completed by the Licensed Practical Nurse today this shift.
--- NOTE | 2020-05-21 12:09 | NUR ---
PATIENT ADMITTED TO REHAB FROM ACUTE FLOOR. HER PCP IS DR. MEZA . DISCHARGE PLANS ARE FOR PATIENT TO RETURN TO HER HOME. WILL CONTINUE TO FOLLOW WITH PATIENT.
[2020-05-21 13:30] VITALS: Ht 167.6 cm; Wt 47.6 kg
--- NOTE | 2020-05-21 17:47 | NUR ---
PT RESTING IN BED WITH EYES OPEN CALL LIGHT IN REACH WILL MONITER
--- NOTE | 2020-05-21 19:45 | NUR ---
AWAKE AND ALERT. RESTING IN BED WITH RESPIRAITONS UNLABORED. DRESSING TO RIGHT HIP INTACT. NO ACUTE DISTRESS NOTED. CALL LIGHT IN REACH.
[2020-05-21 21:19] VITALS: BP 108/46
--- NOTE | 2020-05-22 01:08 | NUR ---
SLEEPING WITH RESPIRATIONS UNLABORED. NO DISTRESS NOTED.
--- NOTE | 2020-05-22 06:39 | NUR ---
QUIET HOURS. NO ACUTE CHANGES IN CONDITION THIS SHIFT. RESTING IN BED WITH NO DISTRESS NOTED.
[2020-05-22 06:48] LABS: EOSINOPHILS 5.1 % (0-7); HEMATOCRIT 33.1 % (36.0-48.0); HEMOGLOBIN 10.9 g/dL (12-16); IMMATURE GRANULOCYTES 0.3 % (0-5); LYMPHOCYTES 26.9 % (15-50); MCH 31.1 pg (26.0-34.0); MCHC 32.9 g/dL (31.0-37.0); MCV 94.6 fL (80.0-100.0); MONOCYTES 14.5 % (2-11); NEUTROPHILS 52.2 % (40-80); PLATELET COUNT 346 10x3/uL (130-400); RDW 13.5 % (11.5-14.5); WBC 3.9 10x3/uL (4.8-10.8)
[2020-05-22 07:36] LABS: CALC OSMOLALITY 266 mosm/kg (275-300); CALCIUM 9.2 mg/dL (8.5-10.1); CARBON DIOXIDE 33.2 mmol/L (21.0-32.0); CHLORIDE - SERUM 96 mmol/L (98-107); CREATININE - SERUM 0.4 mg/dL (0.6-1.3); GLUCOSE 103 mg/dL (74-106); POTASSIUM - SERUM 3.7 mmol/L (3.5-5.1); SODIUM 134 mmol/L (136-145); eGFR NON AFRICAN AMERICAN > 90 mL/min (90-120)
[2020-05-22 07:37] LABS: UREA NITROGEN 9 mg/dL (7-18)
[2020-05-22 07:45] VITALS: BP 102/54
--- NOTE | 2020-05-22 07:45 | NUR ---
AWAKE,DENIES NEEDS.VS TAKEN ,ASSESSMENT COMPLETED.CL IN EASY REACH.BED IN LOW POSITION.CONTINUE WITH CURRENT PLAN OF CARE.
--- NOTE | 2020-05-22 19:16 | NUR ---
RECEIVED PT SITTING UP IN BED AWAKE. ALERT AND ORIENTED X4. DENIES ANY NEEDS OR PAIN. NO SIGNS OF ACUTE DISTRESS NOTED. RIGHT HIP DRESSING INTACT. CALL LIGHT AND WATER WITHIN REACH. FALL PRECAUTIONS IN PLACE. CPOC
[2020-05-22 22:02] VITALS: BP 97/52
--- NOTE | 2020-05-23 01:07 | NUR ---
PT LYING IN BED EYES CLOSED RESTING. RR EVEN AND UNLABORED. CALL LIGHT WITHIN REACH. FALL PRECAUTIONS IN [place]CE. CPOC
--- NOTE | 2020-05-23 04:02 | NUR ---
PT LYING IN BED EYES CLOSED RESTING. RR EVEN AND UNLABORED. CALL LIGHT WITHIN REACH. WILL CONTINUE TO MONITOR
[2020-05-23 07:30] VITALS: BP 120/47; BP 145/66
--- NOTE | 2020-05-23 07:30 | NUR ---
AWAKE,SITTING UP IN BEDSIDE CHAIR.DENIES NEEDS.VS TAKEN,ASSESSMENT COMPLETED.CL IN EASY REACH,BED IN LOW POSITION.WILL CONTINUE WITH CURRENT PLAN OF CARE.
--- NOTE | 2020-05-23 19:14 | NUR ---
RECEIVED PT LYING IN BED AWAKE. ALERT AND ORIENTED X4. DENIES ANY NEEDS OR PAIN. NO SIGNS OF ACUTE DISTRESS NOTED. CALL LIGHT AND WATER WITHIN REACH. FALL PRECAUTIONS IN PLACE. CPOC
[2020-05-23 20:34] VITALS: BP 97/43
--- NOTE | 2020-05-24 01:17 | NUR ---
PT LYING IN BED ON RIGHT SIDE EYES CLOSED RESTING QUIETLY. RR EVEN AND UNLABORED. CALL LIGHT WITHIN REACH. FALL PRECAUTIONS IN PLACE. WILL CONTINUE TO MONITOR
--- NOTE | 2020-05-24 03:30 | NUR ---
PT LYING IN BED EYES CLOSED RESTING QUIETLY. NO SIGNS OF ACUTE DISTRESS NOTED. CALL LIGHT WITHIN REACH. FALL PRECAUTIONS IN PLACE. CPOC
--- NOTE | 2020-05-24 06:29 | NUR ---
PT SITTING UP IN BED AWAKE. DENIES ANY NEEDS OR PAIN. NO ACUTE CHANGES IN CONDITION NOTED THIS SHIFT. CALL LIGHT WITHIN REACH. FALL PRECAUTIONS IN PLACE. CPOC
[2020-05-24 08:26] VITALS: BP 116/60
--- NOTE | 2020-05-24 15:01 | NUR ---
BATH GIVEN AND LINENS CHANGED.
[2020-05-24 21:04] VITALS: BP 120/50
--- NOTE | 2020-05-24 21:15 | NUR ---
RECEIVED PT LYING IN BED AWAKE. ALERT AND ORIENTED X4. DENIES ANY NEEDS OR PAIN. NO SIGNS OF ACUTE DISTRESS NOTED. VS STABLE. SHIFT ASSESSMENT COMPLETE. CALL LIGHT WITHIN REACH. FALL PRECAUTIONS IN PLACE. CPOC
--- NOTE | 2020-05-25 02:51 | NUR ---
PT LYING IN BED EYES CLOSED RESTING. RR EVEN AND UNLABORED. CALL LIGHT WITHIN REACH. FALL PRECAUTIONS IN PLACE. CPOC
[2020-05-25 07:32] LABS: CALC OSMOLALITY 265 mosm/kg (275-300); CALCIUM 8.8 mg/dL (8.5-10.1); CARBON DIOXIDE 34.7 mmol/L (21.0-32.0); CHLORIDE - SERUM 95 mmol/L (98-107); CREATININE - SERUM 0.4 mg/dL (0.6-1.3); POTASSIUM - SERUM 3.6 mmol/L (3.5-5.1); SODIUM 132 mmol/L (136-145); UREA NITROGEN 8 mg/dL (7-18); eGFR NON AFRICAN AMERICAN > 90 mL/min (90-120)
[2020-05-25 07:33] LABS: GLUCOSE 159 mg/dL (74-106)
[2020-05-25 07:47] LABS: BASOPHILS 0.6 % (0-2); EOSINOPHILS 5.4 % (0-7); IMMATURE GRANULOCYTES 0.2 % (0-5); LYMPHOCYTES 25.3 % (15-50); MCH 30.5 pg (26.0-34.0); MCHC 31.4 g/dL (31.0-37.0); MEAN PLATELET VOLUME 8.9 fL (7.4-10.4); MONOCYTES 10.8 % (2-11); NEUTROPHILS 57.7 % (40-80); PLATELET COUNT 402 10x3/uL (130-400); RBC 3.61 10x6/uL (4.00-5.40); RDW 13.8 % (11.5-14.5); WBC 4.6 10x3/uL (4.8-10.8)
[2020-05-25 08:00] VITALS: BP 115/64
--- NOTE | 2020-05-25 08:03 | NUR ---
SITTING UP IN BED EATING BREAKFAST, DENIES ANY NEEDS AT THIS TIME, C/L AND FLUIDS IN REACH.
--- NOTE | 2020-05-25 12:15 | NUR ---
SITTING UP IN W/C EATING LUNCH, DENIES ANY NEEDS AT THIS TIME, C/L AND FLUIDS IN REACH.
--- NOTE | 2020-05-25 13:58 | NUR ---
I have reviewed this patient and I concur with the Shift Assessment completed by the Licensed Practical Nurse today this shift.
--- NOTE | 2020-05-25 15:21 | NUR ---
Nutrition Follow-up: Diet: Regular Vegetarian PO intake: 100% x last 3 meals (05/23/20). She reports that her appetite is "not good." But states that she is drinking 3 Ensure daily to ensure that she gets her protein in. Last BM: 05/23/20. Wt: 105# (05/21/20) Meds reviewed. Labs noted: Na 132(L), Glu 159(H). Recommend continue current diet. Will add Ensure TID to diet order. RD following.
--- NOTE | 2020-05-25 16:18 | NUR ---
SITTING UP IN BED WATCHING TV, DENIES ANY NEEDS AT THIS TIME, C/L AND FLUIDS IN REACH.
--- NOTE | 2020-05-25 19:05 | NUR ---
RECEIVED PT SITTING UP IN BED. ALERT AND ORIENTED X4. DENIES ANY NEEDS OR PAIN. NO SIGNS OF ACUTE DISTRESS NOTED. CALL LIGHT WITHIN REACH. FALL PRECAUTIONS IN PLACE. CPOC
[2020-05-25 19:27] VITALS: BP 118/61
--- NOTE | 2020-05-25 23:16 | NUR ---
PT LYING IN BED EYES CLOSED RESTING. RR EVEN AND UNLABORED. CALL LIGHT WITHIN REACH. WILL CONTINUE TO MONITOR
--- NOTE | 2020-05-26 01:20 | NUR ---
PT LYING IN BED EYES CLOSED RESTING. RR EVEN AND UNLABORED. WILL CONTINUE TO MONITOR
--- NOTE | 2020-05-26 04:27 | NUR ---
PT LYING IN BED EYES CLOSED RESTING. NO ACUTE CHANGES IN CONDITION THIS SHIFT. CALL LIGHT WITHIN REACH. WILL CONTINUE TO MONITOR
[2020-05-26 07:30] VITALS: BP 113/63
--- NOTE | 2020-05-26 07:59 | NUR ---
SITTING UP IN BED EATING BREAKFAST, DENIES ANY NEEDS AT THIS TIME, C/L AND FLUIDS IN REACH.
--- NOTE | 2020-05-26 12:03 | NUR ---
SITTING UP IN W/C, DENIES ANY NEEDS AT THIS TIME, C/L AND FLUIDS IN REACH.
--- NOTE | 2020-05-26 14:59 | NUR ---
CLINICAL UPDATES FAXED TO [facility], , AUTH. # [id number], WITH A TENATIVE DC DATE OF 05/27/20. CONFORMATION OF FAX RECIEVED. WILL CONTINUE TO FOLLOW WITH PATIENT.
--- NOTE | 2020-05-26 16:24 | NUR ---
PATIENT IS BACK IN ROOM FROM THERAPY. PT DENIES NEEDS. STATES SHE'S GLAD SHE GETS TO GO HOME TOMORROW. NO S/S OF DISTRESS. CALL LIGHT IN REACH.
[2020-05-26 21:07] VITALS: BP 117/66
--- NOTE | 2020-05-27 00:24 | NUR ---
PT LYING IN BED EYES CLOSED RESTING. RR EVEN AND UNLABORED. CALL LIGHT WITHIN REACH. FALL PRECAUTIONS IN PLACE. CPOC
--- NOTE | 2020-05-27 04:52 | NUR ---
PT LYING IN BED EYES CLOSED RESTING. NO ACUTE CHANGES IN CONDITION NOTED THIS SHIFT. CALL LIGHT WITHIN REACH. FALL PRECAUTIONS IN PLACE. CPOC
[2020-05-27 06:42] LABS: BASOPHILS 0.7 % (0-2); EOSINOPHILS 5.2 % (0-7); HEMATOCRIT 32.4 % (36.0-48.0); HEMOGLOBIN 10.4 g/dL (12-16); IMMATURE GRANULOCYTES 0.2 % (0-5); LYMPHOCYTES 28.4 % (15-50); MCH 30.7 pg (26.0-34.0); MCHC 32.1 g/dL (31.0-37.0); MCV 95.6 fL (80.0-100.0); MEAN PLATELET VOLUME 8.7 fL (7.4-10.4); MONOCYTES 8.4 % (2-11); NEUTROPHILS 57.1 % (40-80); PLATELET COUNT 408 10x3/uL (130-400); RBC 3.39 10x6/uL (4.00-5.40); RDW 13.7 % (11.5-14.5); WBC 4.4 10x3/uL (4.8-10.8)
[2020-05-27 06:45] LABS: CALC OSMOLALITY 268 mosm/kg (275-300); CALCIUM 8.7 mg/dL (8.5-10.1); CARBON DIOXIDE 33.1 mmol/L (21.0-32.0); CHLORIDE - SERUM 98 mmol/L (98-107); CREATININE - SERUM 0.3 mg/dL (0.6-1.3); GLUCOSE 111 mg/dL (74-106); POTASSIUM - SERUM 3.6 mmol/L (3.5-5.1); SODIUM 135 mmol/L (136-145); UREA NITROGEN 7 mg/dL (7-18); eGFR NON AFRICAN AMERICAN > 90 mL/min (90-120)
[2020-05-27] MEDS ORDERED: HYDROCODON-ACE1 EA10 PO (07:27)
--- NOTE | 2020-05-27 07:27 | RHP ---
PATIENT: KANDY TATE MEDICAL RECORD: [id number] ACCOUNT: [id number] LOCATION:[facility] : 54 ADMISSION DATE: 05/20/20 REHABILITATION HISTORY AND PHYSICAL EXAMINATION POST ADMISSION PHYSICIAN EXAMINATION ADMITTING DIAGNOSIS: Relapsing MS. HISTORY OF PRESENT ILLNESS: The patient is a 69-year-old female patient admitted on 05/15/2020 from the walk-in clinic with a right hip fracture and hypokalemia. She fell back on 04/23/2020 due to balance issues, been hurting ever since. The patient has some shortness of breath, dizziness, chest pain prior to the fall, but all this resolved. Initial x-ray was negative for hip fracture. MRI showed a right femoral neck fracture. She was diagnosed at the age of 21 with myasthenia gravis. The patient has been diagnosed with intermittent MS. She has never been treated for MS in the past. Orthopedic and neurology were consulted. On 05/16/2020, she underwent a right total hip replacement. The patient declined lumbar puncture for a true diagnosis of MS. Previously, she was living alone, was independent with ADLs and mobility prior to this. She has had a history of generalized weakness and gait instability lately resulting in frequent falls. She has prolonged immobility, progressive generalized weakness, especially in the lower extremities, very fatigued, has limited flexion and extension of her lower extremities. Has got proximal muscle strength, decreased in mod to max assist for sit to stand and bed to chair. She is needing to come to rehab to be able to return back to her prior level of functioning. COMORBIDITIES: Include anemia, cardiomyopathy, decrease in physical functioning, difficulty walking, falls, fever, hypokalemia and fatigue. Also, she has got a history of demyelinating disease, history of cardiac ablation, relapsing MS, myasthenia and hyponatremia. PAST MEDICAL HISTORY: Significant for history of osteoporosis and MS. PAST SURGICAL HISTORY: Includes hysterectomy and blepharoplasty. ALLERGIES: No known drug allergies. CURRENT MEDICATIONS: She is on Ditropan 10 mg daily, she is on vitamin D 3000 units daily, calcium 1000 mg daily, carvedilol 3.125 mg b.i.d. with meals, Eliquis 2.5 mg b.i.d., and [place] 10/325 one tab every 4 hours p.r.n. HABITS: No alcohol or tobacco use. FAMILY HISTORY: Noncontributory. SOCIAL HISTORY: The patient hopes to return back home and get back to her prior level of functioning. REVIEW OF SYSTEMS: GENERAL: Does complain of weakness and fatigue. HEENT: Denies cold, cough, or congestion. CARDIOVASCULAR: Denies chest pain. PHYSICAL EXAMINATION: HISTORY AND PHYSICAL [id number] KANDY TATE VITAL SIGNS: Stable, afebrile. GENERAL: Well-developed female in no acute distress upon exam. HEENT: Normocephalic and atraumatic. Mucosa moist. NECK: Supple. No lymphadenopathy. LUNGS: Clear at this time. HEART: Regular rate and rhythm. No murmurs, rubs or gallops. ABDOMEN: Soft, benign, and nondistended. Positive bowel sounds times 4. EXTREMITIES: No clubbing, cyanosis or edema. NEUROLOGIC: She is intact. Her postop area looks good. LABORATORY DATA: White count is 3.9, H&H of 10.9 and 32.8, platelet count is 297. Her sodium is 134, potassium 4.0, BUN and creatinine of 5 and 0.4 and blood sugar is noted to be 106. ASSESSMENT: This is a 69-year-old female patient admitted to rehab with a working diagnosis of relapsing multiple sclerosis. The patient has potential to make improvement. We instituted the following multidisciplinary therapies include, but not limited to physical, occupational, respiratory, speech, nutritional services, prosthetics and orthotics. Given her complex medical condition and risks for more complications, rehabilitation services cannot be provided at a low level of care such as prison facility. PLAN: 1. [facility] to include the following disciplines; A. Physical therapy to improve gait, all transfer skills and bed mobility to a modified independent level. B. Occupational therapy to improve activities of daily living. C. Case management to help with discharge planning and placement options. D. Nutrition to assist with nutritional needs. E. Rehabilitation nursing to assist in monitoring the patient's medication underlying medical conditions and to assist with any type of bowel or bladder management. 2. The patient's current medication and medical care will be continued. 3. The patient will be placed on standard fall precautions. 4. The patient's estimated length of stay is approximately 7-10 days. 5. We will discuss this patient during care team staff meeting this week. We will do continuation of home medications and we will reconsult neurology if necessary. I will see again in the a.m. TRANSINT:[id number] Voice Confirmation ID: [id number] DOCUMENT ID: [id number] YOLANDA notes whether there has been none or any medical/functional change since admission: - No change since preadmission screen. YOLANDA attests patient continues to be appropriate for IRF: - Continues to be appropriate. HISTORY AND PHYSICAL [id number] KANDY TATE,MAMADOU JUAREZ MD at 0727 CC: [id number] DICTATION DATE: 05/21/20 0844 [employer]: 05/21/20 1000 ADM IN [place] [id number] [place] [id number]
[2020-05-27 08:08] VITALS: BP 109/68
--- NOTE | 2020-05-27 08:13 | NUR ---
I have reviewed this patient and I concur with the Shift Assessment completed by the Licensed Practical Nurse today this shift.
--- NOTE | 2020-05-27 14:12 | NUR ---
PT RESTING IN BED WITH EYES OPEN CALL LIGHT IN REACH WILL MONITER
--- NOTE | 2020-05-27 14:45 | NUR ---
PT DISCHARGED TO HOME VIA WHEELCHAIR WITH DAUGHTER DISCHARGE SUMMARY AND MEDS REVIEWED WITH PT SHERYL CALLED TO [facility] PT TOLERATED WELL
== END 2020-05-27 15:23 | disposition home health service (06) | DRG 59 ==
LOC: D.REHAB 18:50
PROVIDERS: ADMIT Emergency Medicine; ATTEND Emergency Medicine
DX: G35 Multiple sclerosis (principal); I42.9 Cardiomyopathy, unspecified; E87.1 Hypo-osmolality and hyponatremia; E44.0 Moderate protein-calorie malnutrition; G72.81 Critical illness myopathy; D64.9 Anemia, unspecified; R50.9 Fever, unspecified; E87.6 Hypokalemia; R53.83 Other fatigue; R26.2 Difficulty in walking, not elsewhere classified; R53.81 Other malaise; R42 Dizziness and giddiness; Z91.81 History of falling; R53.1 Weakness; H49.9 Unspecified paralytic strabismus; R26.9 Unspecified abnormalities of gait and mobility